=== PATIENT | female | born 1960 | race Caucasian/White ===

== ENCOUNTER 2023-07-03 23:14 | Emergency (ER) | payer OTHER, MEDICAID ==
[~2023-07-03] VITALS: Ht 162.6 cm; Wt 81.6 kg
[2023-07-03 23:20] VITALS: BP 194/76; PULSE 70; RESP 20; TEMP 98.2; O2SAT 97
[2023-07-03] MEDS ORDERED: ACETAMINOPHEN 325 MG TAB PO ONE (23:45)
[2023-07-04] MEDS ORDERED: ACETAMINOPHEN EXTRA STRENGTH 500 MG TAB PO ONE
[2023-07-04 00:04] LABS: BASOPHILS # (AUTO) 0.1 K/uL (0.00-0.22); BASOPHILS % (AUTO) 1.3 % (0.0-2.0); EOSINOPHILS # (AUTO) 0.4 K/uL (0-0.4); EOSINOPHILS % (AUTO) 3.8 % (0.0-4.0); HEMATOCRIT 29.6 % (36-48); HEMOGLOBIN 9.9 g/dL (12.0-16.0); LYMPHOCYTES # (AUTO) 1.8 K/uL (2.5-16.5); LYMPHOCYTES % (AUTO) 18.5 % (20.5-51.1); MEAN CORPUSCULAR HEMOGLOBIN 31 pg (27-31); MEAN CORPUSCULAR HGB CONC 34 g/dL (33-37); MEAN CORPUSCULAR VOLUME 93.3 fL (80-94); MONOCYTES # (AUTO) 1.1 K/uL (0.8-1.0); MONOCYTES % (AUTO) 11.4 % (1.7-9.3); NEUTROPHILS # (AUTO) 6.5 K/uL (1.8-7.7); PLATELET COUNT (AUTO) 228 K/uL (140-450); RED BLOOD CELL COUNT(AUTO) 3.17 MIL/uL (4.20-5.40); RED CELL DISTRIBUTION WIDTH 19.1 % (11.6-13.7); WHITE BLOOD COUNT (AUTO) 9.9 K/uL (4.8-10.8)
[2023-07-04 00:18] LABS: ANION GAP 12.1 (8-16); CALCIUM 9.1 mg/dL (8.5-10.1); CARBON DIOXIDE 33.8 mmol/L (21-32); POTASSIUM 4.9 mmol/L (3.5-5.1)
[2023-07-04 00:22] LABS: CREATININE 5.2 mg/dL (0.6-1.3)
[2023-07-04] MEDS ORDERED: carvediloL 6.25 MG TAB PO ONE (03:00)
[2023-07-04] MEDS ORDERED: oxyCODONE 10 MG TABER PO ONE (07:00)
[2023-07-04 07:27] VITALS: TEMP 97.6
[2023-07-04] MEDS ORDERED: hydrALAZINE 20 MG/ML VIAL IVP ONE (07:55)
[2023-07-04] MEDS ORDERED: LID5T TP ×2 (07:56→08:24)
[2023-07-04] MEDS ORDERED: LIDOCAINE 5% 1 EA PATCH TP ONE (08:05)
[2023-07-04] MEDS ORDERED: FLUTICASONE NASAL 50 MCG/ACTUATION 16 GM BTL NS SCH (09:00)
[2023-07-04 09:28] VITALS: BP 178/71; PULSE 79; RESP 17; O2SAT 97
== END 2023-07-04 09:29 | disposition home or self-care (01) ==
LOC: MED 23:14
DX: S89.92XA Unspecified injury of left lower leg, initial encounter (principal); E11.22 Type 2 diabetes mellitus with diabetic chronic kidney disease; I13.2 Hypertensive heart and chronic kidney disease with heart failure and with stage 5 chronic kidney disease, or end stage renal disease; N18.6 End stage renal disease; F32.9 Major depressive disorder, single episode, unspecified; Z86.73 Personal history of transient ischemic attack (TIA), and cerebral infarction without residual deficits; Z79.899 Other long term (current) drug therapy; Z99.2 Dependence on renal dialysis; Z88.0 Allergy status to penicillin; Z88.5 Allergy status to narcotic agent; Z88.8 Allergy status to other drugs, medicaments and biological substances; X58.XXXA Exposure to other specified factors, initial encounter; Y93.89 Activity, other specified; Y92.89 Other specified places as the place of occurrence of the external cause; Y99.8 Other external cause status
CPT/HCPCS: 36415; 73502; 73562; 73590; 80048; 85025; 85379; 93971; 96374; 99284; J0360; Q0092

== ENCOUNTER 2023-07-07 05:10 | Emergency (ER) | payer OTHER, MEDICAID ==
[~2023-07-07] VITALS: Ht 162.6 cm; Wt 81.6 kg
[~2023-07-07 05:10] MED LIST: LID5T TP
[2023-07-07 05:15] VITALS: BP 219/83; PULSE 84; RESP 14; TEMP 96.8; O2SAT 99
[2023-07-07] MEDS ORDERED: LORazepam 2 MG/ML VIAL IM ONE (05:20)
[2023-07-07] MEDS ORDERED: TRANEXAMIC ACID 1,000 MG/10 ML VIAL MC ONE (05:20)
[2023-07-07 05:47] VITALS: BP 206/66; PULSE 73; RESP 14; O2SAT 99
== END 2023-07-07 07:38 | disposition home or self-care (01) ==
LOC: MED 05:10
DX: K06.8 Other specified disorders of gingiva and edentulous alveolar ridge (principal); I13.11 Hypertensive heart and chronic kidney disease without heart failure, with stage 5 chronic kidney disease, or end stage renal disease; E11.22 Type 2 diabetes mellitus with diabetic chronic kidney disease; N18.6 End stage renal disease; Z86.73 Personal history of transient ischemic attack (TIA), and cerebral infarction without residual deficits; Z99.2 Dependence on renal dialysis; Z79.4 Long term (current) use of insulin; Z88.0 Allergy status to penicillin; Z88.5 Allergy status to narcotic agent; Z79.1 Long term (current) use of non-steroidal anti-inflammatories (NSAID); Z88.8 Allergy status to other drugs, medicaments and biological substances
CPT/HCPCS: 96372; 99283; J2060; J3490

== ENCOUNTER 2023-07-17 19:16 | Inpatient (IN) | payer OTHER, MEDICAID ==
[~2023-07-17] VITALS: Ht 165.1 cm; Wt 68.0 kg
[2023-07-17 19:24] VITALS: BP 246/93; PULSE 64; RESP 15; TEMP 98; O2SAT 97
[2023-07-17] MEDS ORDERED: CLONIDINE HYDROCHLORIDE 0.1 MG TAB PO ONE (19:40)
[2023-07-17 20:11] LABS: BASOPHILS # (AUTO) 0.2 K/uL (0.00-0.22); BASOPHILS % (AUTO) 2.3 % (0.0-2.0); EOSINOPHILS # (AUTO) 0.2 K/uL (0-0.4); EOSINOPHILS % (AUTO) 2.7 % (0.0-4.0); HEMATOCRIT 26.5 % (36-48); HEMOGLOBIN 8.9 g/dL (12.0-16.0); LYMPHOCYTES # (AUTO) 1.4 K/uL (2.5-16.5); LYMPHOCYTES % (AUTO) 16.5 % (20.5-51.1); MEAN CORPUSCULAR HEMOGLOBIN 33 pg (27-31); MEAN CORPUSCULAR HGB CONC 34 g/dL (33-37); MEAN CORPUSCULAR VOLUME 97.5 fL (80-94); MONOCYTES # (AUTO) 0.9 K/uL (0.8-1.0); MONOCYTES % (AUTO) 10.5 % (1.7-9.3); NEUTROPHILS # (AUTO) 5.7 K/uL (1.8-7.7); PLATELET COUNT (AUTO) 334 K/uL (140-450); RED BLOOD CELL COUNT(AUTO) 2.72 MIL/uL (4.20-5.40); RED CELL DISTRIBUTION WIDTH 20.2 % (11.6-13.7); WHITE BLOOD COUNT (AUTO) 8.3 K/uL (4.8-10.8)
[2023-07-17 20:24] LABS: ALBUMIN 2.8 g/dL (3.4-5.0); ANION GAP 10.3 (8-16); CALCIUM 9.5 mg/dL (8.5-10.1); CARBON DIOXIDE 34.9 mmol/L (21-32); MAGNESIUM 2.5 mg/dL (1.8-2.4); PHOSPHORUS 3.4 mg/dL (2.5-4.9); POTASSIUM 4.2 mmol/L (3.5-5.1); TOTAL BILIRUBIN 0.4 mg/dL (0.0-1.0); TOTAL PROTEIN, SERUM 8.7 g/dL (6.4-8.2)
[2023-07-17 20:26] LABS: CREATININE 4.9 mg/dL (0.6-1.3)
[2023-07-17] MEDS ORDERED: NIFEdipine 30 MG TABER PO ONE (22:05)
[2023-07-17] MEDS ORDERED: NICARDIPINE HYDROCHLORIDE 25 MG in NACL 0.9% 240 ML IV ONE (22:05)
[2023-07-17] MEDS ORDERED: NICARDIPINE HYDROCHLORIDE 2.5 MG/ML VIAL IV ONE (22:16)
[2023-07-17] MEDS ORDERED: ALBUTEROL 0.083% 2.5 MG/3 ML NEBU INH PRN (22:35)
[2023-07-17] MEDS ORDERED: DOCUSATE SODIUM 100 MG GELCAP PO PRN (22:35)
[2023-07-17] MEDS ORDERED: MAG SULF 2000 MG/WATER PREMIX 50 ML IV PRN (22:35)
[2023-07-17] MEDS ORDERED: ONDANSETRON 4 MG/2 ML VIAL IVP PRN (22:35)
[2023-07-17] MEDS ORDERED: ZOLPIDEM 10 MG TAB PO PRN (22:35)
[2023-07-17] MEDS ORDERED: POTASSIUM CHLORIDE 10 MEQ TABER PO PRN (22:35)
[2023-07-18] VITALS (22 sets, daily range): BP systolic 111–198; BP diastolic 54–107; PULSE 55–78; RESP 12–19; TEMP 96–97.8; O2SAT 97–100
[2023-07-18] MEDS ORDERED: NIFE90TE3 PO (00:20)
[2023-07-18] MEDS ORDERED: CARV12.5 PO (00:20)
[2023-07-18] MEDS ORDERED: CLON0.1T16 PO (00:20)
[2023-07-18] MEDS ORDERED: INSU100V19 SQ (00:20)
[2023-07-18] MEDS ORDERED: INSU100S45 SUBQ (00:20)
[2023-07-18] MEDS ORDERED: TRAZ-343 PO (00:20)
[2023-07-18] MEDS ORDERED: GABA300C PO (00:20)
[2023-07-18] MEDS ORDERED: ASPI-1749 PO (00:20)
[2023-07-18] MEDS: INSULIN LISPRO SLIDING SCALE 100 UNITS/ML VIAL SUBQ PRN (01:42)
[2023-07-18] MEDS ORDERED: NICARDIPINE HYDROCHLORIDE 25 MG in NACL 0.9% 240 ML IV PRN (02:05)
[2023-07-18] MEDS: BLOOD GLUCOSE MONITORING 1 DEV DEV FS SCH ×5 (04:00→20:23)
[2023-07-18 06:26] LABS: BASOPHILS # (AUTO) 0.2 K/uL (0.00-0.22); BASOPHILS % (AUTO) 1.9 % (0.0-2.0); EOSINOPHILS # (AUTO) 0.1 K/uL (0-0.4); EOSINOPHILS % (AUTO) 1.7 % (0.0-4.0); HEMATOCRIT 27.5 % (36-48); HEMOGLOBIN 9.2 g/dL (12.0-16.0); LYMPHOCYTES # (AUTO) 1.7 K/uL (2.5-16.5); LYMPHOCYTES % (AUTO) 19.6 % (20.5-51.1); MEAN CORPUSCULAR HEMOGLOBIN 33 pg (27-31); MEAN CORPUSCULAR HGB CONC 33 g/dL (33-37); MEAN CORPUSCULAR VOLUME 97.8 fL (80-94); MONOCYTES # (AUTO) 0.7 K/uL (0.8-1.0); MONOCYTES % (AUTO) 8.6 % (1.7-9.3); NEUTROPHILS # (AUTO) 5.8 K/uL (1.8-7.7); NEUTROPHILS % (AUTO) 68.2 % (42.2-75.2); PLATELET COUNT (AUTO) 331 K/uL (140-450); RED BLOOD CELL COUNT(AUTO) 2.81 MIL/uL (4.20-5.40); WHITE BLOOD COUNT (AUTO) 8.6 K/uL (4.8-10.8)
[2023-07-18 06:52] LABS: ANION GAP 10.3 (8-16); CALCIUM 9.5 mg/dL (8.5-10.1); POTASSIUM 4.3 mmol/L (3.5-5.1)
[2023-07-18 06:53] LABS: CREATININE 5.4 mg/dL (0.6-1.3)
[2023-07-18] MEDS ORDERED: NIFEdipine 90 MG TABER PO SCH (09:00)
[2023-07-18] MEDS: GABAPENTIN 300 MG CAP PO SCH (09:00)
[2023-07-18] MEDS: ASPIRIN 81 MG TAB.CHEW PO SCH (09:00)
[2023-07-18] MEDS: PANTOPRAZOLE 40 MG INJ VIAL IVP SCH (09:44)
[2023-07-18] MEDS: LORazepam 2 MG/ML VIAL IVP PRN (11:15)
[2023-07-18] MEDS ORDERED: hydrALAZINE 10 MG TAB PO ONE (17:30)
[2023-07-18] MEDS ORDERED: hydrALAZINE 10 MG TAB ONE (18:00)
[2023-07-18] MEDS: INSULIN LANTUS 100 UNITS/ML 10 ML VIAL SUBQ SCH (20:28)
[2023-07-18] MEDS: NIFEdipine 60 MG TABER PO SCH (20:29)
[2023-07-18] MEDS: traZODone 50 MG TAB PO SCH (20:30)
[2023-07-19] VITALS (8 sets, daily range): BP systolic 132–172; BP diastolic 60–75; PULSE 56–80; RESP 18–19; TEMP 96.8–98.5; O2SAT 96–100
[2023-07-19] MEDS: LORazepam 2 MG/ML VIAL IVP PRN ×2 (01:23→11:26)
[2023-07-19 05:39] LABS: BASOPHILS # (AUTO) 0.2 K/uL (0.00-0.22); BASOPHILS % (AUTO) 2.4 % (0.0-2.0); EOSINOPHILS # (AUTO) 0.3 K/uL (0-0.4); EOSINOPHILS % (AUTO) 3.1 % (0.0-4.0); HEMATOCRIT 30.8 % (36-48); HEMOGLOBIN 10.2 g/dL (12.0-16.0); LYMPHOCYTES # (AUTO) 1.5 K/uL (2.5-16.5); LYMPHOCYTES % (AUTO) 16.9 % (20.5-51.1); MEAN CORPUSCULAR HEMOGLOBIN 32 pg (27-31); MEAN CORPUSCULAR HGB CONC 33 g/dL (33-37); MEAN CORPUSCULAR VOLUME 97.5 fL (80-94); MONOCYTES # (AUTO) 0.8 K/uL (0.8-1.0); MONOCYTES % (AUTO) 8.8 % (1.7-9.3); NEUTROPHILS # (AUTO) 6.2 K/uL (1.8-7.7); NEUTROPHILS % (AUTO) 68.8 % (42.2-75.2); PLATELET COUNT (AUTO) 330 K/uL (140-450); RED BLOOD CELL COUNT(AUTO) 3.16 MIL/uL (4.20-5.40); RED CELL DISTRIBUTION WIDTH 20.3 % (11.6-13.7)
[2023-07-19 05:56] LABS: ANION GAP 9.2 (8-16); CALCIUM 9.3 mg/dL (8.5-10.1); CARBON DIOXIDE 33.1 mmol/L (21-32); POTASSIUM 4.3 mmol/L (3.5-5.1)
[2023-07-19 06:20] LABS: CREATININE 4.2 mg/dL (0.6-1.3)
[2023-07-19] MEDS: BLOOD GLUCOSE MONITORING 1 DEV DEV FS SCH ×4 (06:54→21:06)
[2023-07-19] MEDS ORDERED: carvediloL 12.5 MG TAB PO SCH (08:15)
[2023-07-19] MEDS ORDERED: CLONIDINE HYDROCHLORIDE 0.1 MG TAB PO SCH (08:15)
[2023-07-19] MEDS: NIFEdipine 60 MG TABER PO SCH ×2 (08:59→20:36)
[2023-07-19] MEDS: GABAPENTIN 300 MG CAP PO SCH (08:59)
[2023-07-19] MEDS: ASPIRIN 81 MG TAB.CHEW PO SCH (08:59)
[2023-07-19] MEDS: PANTOPRAZOLE 40 MG INJ VIAL IVP SCH (09:00)
[2023-07-19] MEDS: CLONIDINE HYDROCHLORIDE 0.1 MG TAB PO SCH (20:38)
[2023-07-19] MEDS: carvediloL 12.5 MG TAB PO SCH (20:38)
[2023-07-19] MEDS: traZODone 50 MG TAB PO SCH (20:39)
[2023-07-19] MEDS: ACETAMINOPHEN 325 MG TAB PO PRN (20:40)
[2023-07-19] MEDS: INSULIN LANTUS 100 UNITS/ML 10 ML VIAL SUBQ SCH (21:06)
[2023-07-20] VITALS (13 sets, daily range): BP systolic 109–140; BP diastolic 49–77; PULSE 62–82; RESP 18; TEMP 96.7–98; O2SAT 96–100
[2023-07-20 05:18] LABS: BASOPHILS # (AUTO) 0.2 K/uL (0.00-0.22); EOSINOPHILS # (AUTO) 0.2 K/uL (0-0.4); EOSINOPHILS % (AUTO) 3.7 % (0.0-4.0); HEMATOCRIT 28.9 % (36-48); HEMOGLOBIN 9.5 g/dL (12.0-16.0); LYMPHOCYTES # (AUTO) 1.8 K/uL (2.5-16.5); LYMPHOCYTES % (AUTO) 27.8 % (20.5-51.1); MEAN CORPUSCULAR HEMOGLOBIN 32 pg (27-31); MEAN CORPUSCULAR HGB CONC 33 g/dL (33-37); MEAN CORPUSCULAR VOLUME 97.7 fL (80-94); MONOCYTES # (AUTO) 0.9 K/uL (0.8-1.0); MONOCYTES % (AUTO) 14.4 % (1.7-9.3); NEUTROPHILS # (AUTO) 3.2 K/uL (1.8-7.7); NEUTROPHILS % (AUTO) 51.1 % (42.2-75.2); PLATELET COUNT (AUTO) 316 K/uL (140-450); RED BLOOD CELL COUNT(AUTO) 2.95 MIL/uL (4.20-5.40); RED CELL DISTRIBUTION WIDTH 20.5 % (11.6-13.7); WHITE BLOOD COUNT (AUTO) 6.3 K/uL (4.8-10.8)
[2023-07-20 05:38] LABS: ANION GAP 10.2 (8-16); CALCIUM 9.2 mg/dL (8.5-10.1); CARBON DIOXIDE 32.4 mmol/L (21-32); POTASSIUM 4.6 mmol/L (3.5-5.1)
[2023-07-20] MEDS: BLOOD GLUCOSE MONITORING 1 DEV DEV FS SCH ×3 (06:16→16:15)
[2023-07-20] MEDS: PANTOPRAZOLE 40 MG INJ VIAL IVP SCH (08:11)
[2023-07-20] MEDS: GABAPENTIN 300 MG CAP PO SCH (08:12)
[2023-07-20] MEDS: carvediloL 12.5 MG TAB PO SCH (08:12)
[2023-07-20] MEDS: ACETAMINOPHEN 325 MG TAB PO PRN (08:13)
[2023-07-20] MEDS: ASPIRIN 81 MG TAB.CHEW PO SCH (08:13)
[2023-07-20] MEDS: NIFEdipine 60 MG TABER PO SCH (08:14)
[2023-07-20] MEDS: CLONIDINE HYDROCHLORIDE 0.1 MG TAB PO SCH (08:14)
[2023-07-20] MEDS ORDERED: MAG SULF 2000 MG/WATER PREMIX 50 ML IV ONE (09:05)
[2023-07-20] MEDS ORDERED: FOAM DRESSING TP PRN (10:35)
[2023-07-20] MEDS ORDERED: NIFE60TA22 PO (11:03)
[2023-07-20] MEDS ORDERED: CARV12.5 PO (11:04)
[2023-07-20] MEDS ORDERED: CLON0.1T16 PO (11:08)
[2023-07-20] MEDS: INSULIN LISPRO SLIDING SCALE 100 UNITS/ML VIAL SUBQ PRN (11:28)
[2023-07-20] MEDS ORDERED: FOAM DRESSING TP SCH (13:00)
[2023-07-20] MEDS ORDERED: EPOETIN ALFA 10,000 UNITS/ML VIAL SUBQ SCH (13:15)
[2023-07-21 06:08] LABS: HEPATITIS A ANTIBODY IGM Negative (Negative); HEPATITIS A ANTIBODY TOTAL Negative (Negative); HEPATITIS B CORE AB TOTAL Negative (Negative); HEPATITIS B CORE, IGM Negative (Negative); HEPATITIS B SURFACE ANTIBODY Non Reactive (.); HEPATITIS B SURFACE ANTIGEN Negative (Negative); HEPATITIS C VIRUS ANTIBODY Non Reactive (Non Reactive)
== END 2023-07-20 18:15 | DRG 640 ==
LOC: MED 19:16 → MMU 22:31 → MIC 23:04 → MTU 07-18 15:50
PROVIDERS: ADMIT Family Medicine; ATTEND Family Medicine
PROC: 5A1D70Z Performance of Urinary Filtration, Intermittent, Less than 6 Hours Per Day (ICD-10-PCS; principal; 2023-07-18)
DX: E43 Unspecified severe protein-calorie malnutrition (principal); N17.0 Acute kidney failure with tubular necrosis; N18.6 End stage renal disease; I16.1 Hypertensive emergency; G93.49 Other encephalopathy; I69.354 Hemiplegia and hemiparesis following cerebral infarction affecting left non-dominant side; I12.0 Hypertensive chronic kidney disease with stage 5 chronic kidney disease or end stage renal disease; D50.9 Iron deficiency anemia, unspecified; D53.9 Nutritional anemia, unspecified; E83.41 Hypermagnesemia; E11.22 Type 2 diabetes mellitus with diabetic chronic kidney disease; Z88.5 Allergy status to narcotic agent; Z88.0 Allergy status to penicillin; Z88.8 Allergy status to other drugs, medicaments and biological substances; Z79.899 Other long term (current) drug therapy; Z79.82 Long term (current) use of aspirin; Z68.25 Body mass index [BMI] 25.0-25.9, adult
CPT/HCPCS: 36415; 70450; 80048; 80053; 82948; 83735; 84100; 84484; 85025; 86704; 86706; 86708; 86709; 86803; 87081; 87340; 93005; 96374; 97116; 97163-GP; 99285; C9113; J0885; J1815; J2060; J2405; J7030

== ENCOUNTER 2023-07-23 15:06 | Emergency (ER) | payer OTHER, MEDICAID ==
[~2023-07-23] VITALS: Ht 160 cm; Wt 74.8 kg
[2023-07-23 15:06] VITALS: BP 108/69; PULSE 69; RESP 17; TEMP 97.4; O2SAT 97
[~2023-07-23 15:06] MED LIST changes: +ASPI-1749 PO; +CARV12.5 PO; +CLON0.1T16 PO; +GABA300C PO; +INSU100S45 SUBQ; +INSU100V19 SQ; +NIFE60TA22 PO; +NIFE90TE3 PO; +TRAZ-343 PO
[2023-07-23 16:08] VITALS: O2SAT 100
[2023-07-23 16:46] VITALS: BP 108/69; PULSE 69; RESP 17; TEMP 97.4; O2SAT 97
== END 2023-07-23 16:50 | disposition home or self-care (01) ==
LOC: MED 15:06
DX: S09.90XA Unspecified injury of head, initial encounter (principal); E11.22 Type 2 diabetes mellitus with diabetic chronic kidney disease; I13.2 Hypertensive heart and chronic kidney disease with heart failure and with stage 5 chronic kidney disease, or end stage renal disease; N18.6 End stage renal disease; Z99.2 Dependence on renal dialysis; Z88.0 Allergy status to penicillin; Z88.5 Allergy status to narcotic agent; Z88.8 Allergy status to other drugs, medicaments and biological substances; Z79.899 Other long term (current) drug therapy; Z86.73 Personal history of transient ischemic attack (TIA), and cerebral infarction without residual deficits; W19.XXXA Unspecified fall, initial encounter; Y93.89 Activity, other specified; Y92.89 Other specified places as the place of occurrence of the external cause; Y99.8 Other external cause status
CPT/HCPCS: 70450; 73562; 99284

== ENCOUNTER 2023-08-07 01:06 | Inpatient (IN) | payer OTHER, MEDICAID ==
[~2023-08-07] VITALS: Ht 170.2 cm; Wt 81.6 kg
[2023-08-07 01:08] VITALS: BP 127/97; PULSE 98; RESP 16; TEMP 97.9; O2SAT 96
[2023-08-07] MEDS ORDERED: NACL 0.9% 1,000 ML IV SCH (01:15)
[2023-08-07] MEDS ORDERED: ONDANSETRON 4 MG/2 ML VIAL ONE (01:18)
[2023-08-07] MEDS ORDERED: fentaNYL citrate 0.05 MG/ML VIAL IVP ONE (01:30)
[2023-08-07 01:33] LABS: BASOPHILS % (AUTO) 0.1 % (0.0-2.0); EOSINOPHILS # (AUTO) 0.3 K/uL (0-0.4); HEMATOCRIT 32.5 % (36-48); HEMOGLOBIN 10.3 g/dL (12.0-16.0); LYMPHOCYTES # (AUTO) 0.3 K/uL (2.5-16.5); LYMPHOCYTES % (AUTO) 2.3 % (20.5-51.1); MEAN CORPUSCULAR HEMOGLOBIN 32 pg (27-31); MEAN CORPUSCULAR HGB CONC 32 g/dL (33-37); MEAN CORPUSCULAR VOLUME 100.5 fL (80-94); MONOCYTES # (AUTO) 0.4 K/uL (0.8-1.0); MONOCYTES % (AUTO) 3.2 % (1.7-9.3); NEUTROPHILS # (AUTO) 11.7 K/uL (1.8-7.7); NEUTROPHILS % (AUTO) 92.4 % (42.2-75.2); PLATELET COUNT (AUTO) 272 K/uL (140-450); RED BLOOD CELL COUNT(AUTO) 3.24 MIL/uL (4.20-5.40); RED CELL DISTRIBUTION WIDTH 17.7 % (11.6-13.7); WHITE BLOOD COUNT (AUTO) 12.6 K/uL (4.8-10.8)
[2023-08-07] MEDS ORDERED: ONDANSETRON 4 MG/2 ML VIAL IVP ONE (01:35)
[2023-08-07 01:38] LABS: INR 0.99 (0.8-1.2); PARTIAL THROMBOPLASTIN TIME 25.7 secs (22-35.6); PROTHROMBIN TIME 10.4 secs (10.8-13.4)
[2023-08-07 01:41] LABS: ALBUMIN 2.9 g/dL (3.4-5.0); ANION GAP 15.2 (8-16); CALCIUM 9.4 mg/dL (8.5-10.1); CARBON DIOXIDE 31.1 mmol/L (21-32); CREATININE 3.7 mg/dL (0.6-1.3); POTASSIUM 4.3 mmol/L (3.5-5.1); TOTAL BILIRUBIN 1.1 mg/dL (0.0-1.0); TOTAL PROTEIN, SERUM 8.4 g/dL (6.4-8.2)
[2023-08-07 01:45] LABS: LACTIC ACID 2.9 mmol/L (0.4-2.0)
[2023-08-07] MEDS ORDERED: CEFEPIME 1,000 MG in DEXTROSE 5% 50 ML IV ONE (02:15)
[2023-08-07] MEDS ORDERED: VANCOMYCIN 1,000 MG in DEXTROSE 5% 250 ML IV ONE (02:15)
[2023-08-07] MEDS ORDERED: CEFEPIME 1,000 MG VIAL ONE (02:51)
[2023-08-07] MEDS ORDERED: VANCOMYCIN 1,000 MG VIAL ONE (02:53)
[2023-08-07 04:55] LABS: APPEARANCE,URINE CLEAR (CLEAR); BILIRUBIN,URINE NEGATIVE (NEGATIVE); BLOOD, URINE 2+ (NEGATIVE); COLOR,URINE YELLOW (YELLOW); LEUKOCYTE ESTERASE ,URINE 2+ (NEGATIVE); NITRITE, URINE NEGATIVE (NEGATIVE); PH,URINE 7.5 (5.0-9.0); PROTEIN,URINE 2+ (NEGATIVE); UGLUCOSE NEGATIVE (NEGATIVE); UROBILINOGEN,URINE 0.2 EU/dL (0.2 - 1)
[2023-08-07 04:57] LABS: BACTERIA,URINE 10-30 (MOD) /HPF (None Seen); MUCUS,URINE 1+ /LPF (None Seen); RBC,URINE 11-20 (MOD) /HPF (0-5); SQUAMOUS EPITHELIAL CELL,UR 0-3 (FEW) /LPF (0-3 (FEW)); WBC,URINE TOO MANY TO COUNT /HPF (0-5)
[2023-08-07] MEDS ORDERED: ACETAMINOPHEN 325 MG TAB PO PRN (12:25)
[2023-08-07] MEDS ORDERED: MAG SULF 2000 MG/WATER PREMIX 50 ML IV PRN (12:25)
[2023-08-07] MEDS ORDERED: DEXTROSE 50% 50 ML SYR IVP PRN (12:25)
[2023-08-07] MEDS: NACL 0.9% 1,000 ML IV SCH (12:25)
[2023-08-07] MEDS ORDERED: ONDANSETRON 4 MG/2 ML VIAL IVP PRN (12:25)
[2023-08-07] MEDS ORDERED: POTASSIUM CHLORIDE 10 MEQ TABER PO PRN (12:25)
[2023-08-07 13:30] LABS: LACTIC ACID 1.9 mmol/L (0.4-2.0)
[2023-08-07] MEDS ORDERED: PIPERACILLIN/TAZOBACTAM 2.25 GM VIAL IV ONE ×2 (13:46→23:43)
[2023-08-07 13:57] LABS: INR 1.08 (0.8-1.2); PARTIAL THROMBOPLASTIN TIME 33.2 secs (22-35.6); PROTHROMBIN TIME 11.3 secs (10.8-13.4)
[2023-08-07] MEDS: PIPERACILLIN/TAZOBACTAM 2.25 GM in DEXTROSE 5% 50 ML IV SCH ×2 (14:05→23:48)
[2023-08-07 14:30] LABS: CHOL/HDL RATIO 4.3 (1-4.5); FREE T4 (FREE THYROXINE) 1.31 ng/dL (0.76-1.46); MAGNESIUM 1.8 mg/dL (1.8-2.4); PHOSPHORUS 3.1 mg/dL (2.5-4.9); THYROID STIMULATING HORMONE 0.72 uIU/mL (0.34-3.74)
[2023-08-07] MEDS: BLOOD GLUCOSE MONITORING 1 DEV DEV FS SCH ×2 (16:30→23:00)
[2023-08-07] MEDS ORDERED: NON-FORMULARY ITEM (Insulin Aspart* (Novolog*) 3 UNITS) SUBQ SCH (16:30)
[2023-08-07] MEDS: INSULIN LISPRO SLIDING SCALE 100 UNITS/ML VIAL SUBQ PRN (19:14)
[2023-08-07 20:26] VITALS: BP 137/52; PULSE 71; PULSE 80; RESP 17; TEMP 97.6; O2SAT 94; O2SAT 99
[2023-08-07] MEDS ORDERED: NIFEDIPINE PO SCH (21:00)
[2023-08-07] MEDS: ACETAMINOPHEN EXTRA STRENGTH 500 MG TAB PO PRN (22:38)
[2023-08-07] MEDS: CLONIDINE HYDROCHLORIDE 0.1 MG TAB PO SCH (23:50)
[2023-08-07] MEDS: DOCUSATE SODIUM 100 MG GELCAP PO SCH (23:52)
[2023-08-07] MEDS: carvediloL 12.5 MG TAB PO SCH (23:53)
[2023-08-07] MEDS: traZODone 50 MG TAB PO SCH (23:54)
[2023-08-08] VITALS (7 sets, daily range): BP systolic 154–208; BP diastolic 63–87; PULSE 63–78; RESP 16–18; TEMP 97.2–98.9; O2SAT 96–99
[2023-08-08] MEDS ORDERED: PIPERACILLIN/TAZOBACTAM 2.25 GM VIAL IV ONE (05:04)
[2023-08-08] MEDS: PIPERACILLIN/TAZOBACTAM 2.25 GM in DEXTROSE 5% 50 ML IV SCH ×3 (05:24→20:59)
[2023-08-08 06:14] LABS: BASOPHILS # (AUTO) 0.1 K/uL (0.00-0.22); BASOPHILS % (AUTO) 1.3 % (0.0-2.0); EOSINOPHILS # (AUTO) 0.4 K/uL (0-0.4); EOSINOPHILS % (AUTO) 4.9 % (0.0-4.0); HEMATOCRIT 24.9 % (36-48); HEMOGLOBIN 8.2 g/dL (12.0-16.0); LYMPHOCYTES # (AUTO) 1.3 K/uL (2.5-16.5); LYMPHOCYTES % (AUTO) 15.2 % (20.5-51.1); MEAN CORPUSCULAR HEMOGLOBIN 33 pg (27-31); MEAN CORPUSCULAR HGB CONC 33 g/dL (33-37); MEAN CORPUSCULAR VOLUME 99.8 fL (80-94); MONOCYTES # (AUTO) 0.8 K/uL (0.8-1.0); NEUTROPHILS % (AUTO) 69.6 % (42.2-75.2); PLATELET COUNT (AUTO) 240 K/uL (140-450); RED BLOOD CELL COUNT(AUTO) 2.49 MIL/uL (4.20-5.40); RED CELL DISTRIBUTION WIDTH 17.6 % (11.6-13.7); WHITE BLOOD COUNT (AUTO) 8.6 K/uL (4.8-10.8)
[2023-08-08 06:44] LABS: CALCIUM 8.5 mg/dL (8.5-10.1); CARBON DIOXIDE 31.8 mmol/L (21-32); POTASSIUM 4.8 mmol/L (3.5-5.1)
[2023-08-08 06:50] LABS: MAGNESIUM 1.9 mg/dL (1.8-2.4); PHOSPHORUS 4.1 mg/dL (2.5-4.9)
[2023-08-08 06:53] LABS: CREATININE 5.2 mg/dL (0.6-1.3)
[2023-08-08] MEDS: BLOOD GLUCOSE MONITORING 1 DEV DEV FS SCH ×4 (07:57→20:57)
[2023-08-08] MEDS: NACL 0.9% 1,000 ML IV SCH (08:25)
[2023-08-08] MEDS: carvediloL 12.5 MG TAB PO SCH ×3 (09:00→21:00)
[2023-08-08] MEDS: NIFEdipine 90 MG TABER PO SCH ×2 (09:00→09:57)
[2023-08-08] MEDS: CLONIDINE HYDROCHLORIDE 0.1 MG TAB PO SCH ×3 (09:00→20:59)
[2023-08-08] MEDS: PANTOPRAZOLE 40 MG INJ VIAL IVP SCH (09:00)
[2023-08-08] MEDS: DOCUSATE SODIUM 100 MG GELCAP PO SCH ×2 (09:55→21:00)
[2023-08-08] MEDS: ASPIRIN 81 MG TAB.CHEW PO SCH (09:56)
[2023-08-08] MEDS: GABAPENTIN 300 MG CAP PO SCH (09:56)
[2023-08-08] MEDS: ACETAMINOPHEN EXTRA STRENGTH 500 MG TAB PO PRN ×2 (10:08→16:24)
[2023-08-08] MEDS ORDERED: hydrALAZINE 10 MG TAB PO SCH (19:55)
[2023-08-08] MEDS: INSULIN LANTUS 100 UNITS/ML 10 ML VIAL SUBQ SCH ×2 (20:00)
[2023-08-08] MEDS: traZODone 50 MG TAB PO SCH (21:00)
[2023-08-09] VITALS (7 sets, daily range): BP systolic 133–159; BP diastolic 50–80; PULSE 58–70; RESP 15–20; TEMP 97.2–98.7; O2SAT 96–99
[2023-08-09] MEDS: ACETAMINOPHEN EXTRA STRENGTH 500 MG TAB PO PRN ×2 (00:31→23:51)
[2023-08-09] MEDS ORDERED: KETOROLAC 30 MG/ML VIAL IVP ONE (02:25)
[2023-08-09] MEDS: hydrALAZINE 10 MG TAB PO PRN ×2 (02:50→08:20)
[2023-08-09] MEDS: NACL 0.9% 1,000 ML IV SCH (05:03)
[2023-08-09] MEDS: PIPERACILLIN/TAZOBACTAM 2.25 GM in DEXTROSE 5% 50 ML IV SCH ×3 (05:04→20:36)
[2023-08-09 06:22] LABS: BASOPHILS # (AUTO) 0.2 K/uL (0.00-0.22); BASOPHILS % (AUTO) 1.7 % (0.0-2.0); EOSINOPHILS # (AUTO) 0.4 K/uL (0-0.4); EOSINOPHILS % (AUTO) 4.1 % (0.0-4.0); HEMATOCRIT 26.5 % (36-48); HEMOGLOBIN 8.8 g/dL (12.0-16.0); LYMPHOCYTES # (AUTO) 1.2 K/uL (2.5-16.5); LYMPHOCYTES % (AUTO) 13.5 % (20.5-51.1); MEAN CORPUSCULAR HEMOGLOBIN 33 pg (27-31); MEAN CORPUSCULAR HGB CONC 33 g/dL (33-37); MEAN CORPUSCULAR VOLUME 99.5 fL (80-94); MONOCYTES # (AUTO) 0.7 K/uL (0.8-1.0); MONOCYTES % (AUTO) 8.3 % (1.7-9.3); NEUTROPHILS # (AUTO) 6.5 K/uL (1.8-7.7); NEUTROPHILS % (AUTO) 72.4 % (42.2-75.2); PLATELET COUNT (AUTO) 269 K/uL (140-450); RED BLOOD CELL COUNT(AUTO) 2.66 MIL/uL (4.20-5.40); RED CELL DISTRIBUTION WIDTH 17.8 % (11.6-13.7)
[2023-08-09 06:34] LABS: MAGNESIUM 1.9 mg/dL (1.8-2.4); PHOSPHORUS 3.3 mg/dL (2.5-4.9)
[2023-08-09] MEDS: BLOOD GLUCOSE MONITORING 1 DEV DEV FS SCH ×4 (06:36→20:50)
[2023-08-09 06:37] LABS: ANION GAP 10.9 (8-16); CALCIUM 9.2 mg/dL (8.5-10.1); CARBON DIOXIDE 31.3 mmol/L (21-32); CREATININE 3.4 mg/dL (0.6-1.3); POTASSIUM 4.2 mmol/L (3.5-5.1)
[2023-08-09] MEDS ORDERED: GABAPENTIN 100 MG CAP PO SCH (09:00)
[2023-08-09] MEDS: GABAPENTIN 300 MG CAP PO SCH (09:29)
[2023-08-09] MEDS: CLONIDINE HYDROCHLORIDE 0.1 MG TAB PO SCH ×2 (09:30→20:37)
[2023-08-09] MEDS: carvediloL 12.5 MG TAB PO SCH ×2 (09:31→20:38)
[2023-08-09] MEDS: ASPIRIN 81 MG TAB.CHEW PO SCH (09:31)
[2023-08-09] MEDS: NIFEdipine 90 MG TABER PO SCH (09:31)
[2023-08-09] MEDS: PANTOPRAZOLE 40 MG INJ VIAL IVP SCH (09:31)
[2023-08-09] MEDS: DOCUSATE SODIUM 100 MG GELCAP PO SCH ×2 (09:31→20:38)
[2023-08-09] MEDS ORDERED: hydrALAZINE 25 MG TAB PO PRN (12:45)
[2023-08-09] MEDS: INSULIN LISPRO SLIDING SCALE 100 UNITS/ML VIAL SUBQ PRN (18:11)
[2023-08-09] MEDS: INSULIN LANTUS 100 UNITS/ML 10 ML VIAL SUBQ SCH (20:00)
[2023-08-09] MEDS: traZODone 50 MG TAB PO SCH (20:39)
[2023-08-09 22:08] LABS: AMPHETAMINE, URINE NEGATIVE ng/ml (NEG <=1000); BARBITURATE, URINE NEGATIVE ng/ml (NEG <=200); BENZODIAZEPINE, URINE NEGATIVE ng/mL (NEG <=200); CANNABINOID, URINE NEGATIVE ng/mL (NEG <=50); COCAINE, URINE NEGATIVE ng/mL (NEG <=300); OPIATE, URINE NEGATIVE ng/mL (NEG <=2000); PHENCYCLIDINE SCREEN,URINE NEGATIVE ng/mL (NEG <=25)
[2023-08-10] VITALS (7 sets, daily range): BP systolic 126–176; BP diastolic 55–98; PULSE 56–85; RESP 18–20; TEMP 96.9–97.9; O2SAT 96–99
[2023-08-10] MEDS: NACL 0.9% 1,000 ML IV SCH (00:23)
[2023-08-10] MEDS: PIPERACILLIN/TAZOBACTAM 2.25 GM in DEXTROSE 5% 50 ML IV SCH ×2 (05:33→13:57)
[2023-08-10 06:50] LABS: MAGNESIUM 2.2 mg/dL (1.8-2.4); PHOSPHORUS 5.3 mg/dL (2.5-4.9)
[2023-08-10 06:54] LABS: ANION GAP 14.4 (8-16); CALCIUM 9.2 mg/dL (8.5-10.1); CARBON DIOXIDE 27.3 mmol/L (21-32); POTASSIUM 4.7 mmol/L (3.5-5.1)
[2023-08-10 06:56] LABS: BASOPHILS # (AUTO) 0.2 K/uL (0.00-0.22); BASOPHILS % (AUTO) 2.5 % (0.0-2.0); EOSINOPHILS # (AUTO) 0.3 K/uL (0-0.4); EOSINOPHILS % (AUTO) 5.6 % (0.0-4.0); HEMATOCRIT 26.2 % (36-48); HEMOGLOBIN 8.7 g/dL (12.0-16.0); LYMPHOCYTES # (AUTO) 1.7 K/uL (2.5-16.5); LYMPHOCYTES % (AUTO) 27.1 % (20.5-51.1); MEAN CORPUSCULAR HEMOGLOBIN 33 pg (27-31); MEAN CORPUSCULAR HGB CONC 33 g/dL (33-37); MEAN CORPUSCULAR VOLUME 99.7 fL (80-94); MONOCYTES # (AUTO) 0.7 K/uL (0.8-1.0); MONOCYTES % (AUTO) 11.1 % (1.7-9.3); NEUTROPHILS # (AUTO) 3.3 K/uL (1.8-7.7); NEUTROPHILS % (AUTO) 53.7 % (42.2-75.2); PLATELET COUNT (AUTO) 276 K/uL (140-450); RED BLOOD CELL COUNT(AUTO) 2.63 MIL/uL (4.20-5.40); RED CELL DISTRIBUTION WIDTH 17.7 % (11.6-13.7); WHITE BLOOD COUNT (AUTO) 6.2 K/uL (4.8-10.8)
[2023-08-10] MEDS: BLOOD GLUCOSE MONITORING 1 DEV DEV FS SCH ×3 (06:58→16:42)
[2023-08-10 07:00] LABS: CREATININE 5.1 mg/dL (0.6-1.3)
[2023-08-10] MEDS: INSULIN LISPRO SLIDING SCALE 100 UNITS/ML VIAL SUBQ PRN ×2 (07:01→11:54)
[2023-08-10] MEDS ORDERED: CEPH250C16 PO (07:28)
[2023-08-10] MEDS ORDERED: PIPE50SO5 IV (08:26)
[2023-08-10] MEDS: DOCUSATE SODIUM 100 MG GELCAP PO SCH (09:00)
[2023-08-10] MEDS: ASPIRIN 81 MG TAB.CHEW PO SCH (09:26)
[2023-08-10] MEDS: carvediloL 12.5 MG TAB PO SCH (09:27)
[2023-08-10] MEDS: GABAPENTIN 300 MG CAP PO SCH (09:27)
[2023-08-10] MEDS: NIFEdipine 90 MG TABER PO SCH (09:28)
[2023-08-10] MEDS: CLONIDINE HYDROCHLORIDE 0.1 MG TAB PO SCH (09:29)
[2023-08-10] MEDS: PANTOPRAZOLE 40 MG INJ VIAL IVP SCH (09:55)
== END 2023-08-10 18:00 | DRG 871 ==
LOC: MED 01:06 → MTU 12:26
PROC: 5A1D70Z Performance of Urinary Filtration, Intermittent, Less than 6 Hours Per Day (ICD-10-PCS; principal; 2023-08-08)
PROC: 5A1D70Z Performance of Urinary Filtration, Intermittent, Less than 6 Hours Per Day (ICD-10-PCS; 2023-08-09)
PROC: 5A1D70Z Performance of Urinary Filtration, Intermittent, Less than 6 Hours Per Day (ICD-10-PCS; 2023-08-10)
DX: A41.9 Sepsis, unspecified organism (principal); J69.0 Pneumonitis due to inhalation of food and vomit; J96.01 Acute respiratory failure with hypoxia; N18.6 End stage renal disease; I12.0 Hypertensive chronic kidney disease with stage 5 chronic kidney disease or end stage renal disease; C16.9 Malignant neoplasm of stomach, unspecified; I69.354 Hemiplegia and hemiparesis following cerebral infarction affecting left non-dominant side; E87.70 Fluid overload, unspecified; E11.22 Type 2 diabetes mellitus with diabetic chronic kidney disease; Z88.1 Allergy status to other antibiotic agents; Z88.5 Allergy status to narcotic agent; Z88.0 Allergy status to penicillin; Z88.8 Allergy status to other drugs, medicaments and biological substances; Z79.4 Long term (current) use of insulin; Z79.899 Other long term (current) drug therapy; Z85.00 Personal history of malignant neoplasm of unspecified digestive organ
CPT/HCPCS: 36415; 70450; 71045; 80048; 80053; 80305; 81001; 82140; 82150; 82948; 83036; 83605; 83690; 83735; 83880; 84100; 84439; 84443; 84484; 85025; 85610; 85730; 87040; 87070; 87081; 87086; 87205; 93005; 96361; 96365; 96368; 96375; 99291; C9113; J0692; J1644; J1815; J1885; J2405; J2543; J3010; J3370; J7060; Q0092; Q9967

== ENCOUNTER 2023-08-18 07:52 | Inpatient (IN) | payer OTHER, MEDICAID ==
[~2023-08-18] VITALS: Ht 162.6 cm; Wt 83.5 kg
[2023-08-18] VITALS (7 sets, daily range): BP systolic 150–215; BP diastolic 71–89; PULSE 52–86; RESP 16–20; TEMP 97.3–98.1; O2SAT 94–99
[~2023-08-18 07:52] MED LIST changes: +CEPH250C16 PO; -NIFE90TE3 PO; +PIPE50SO5 IV
[2023-08-18 08:49] LABS: BLOOD GAS BASE EXCESS 4.8 mmol/L (-2.0-2.0); BLOOD GAS HCO3 29.1 mmol/L (22-26); BLOOD GAS PH 7.459 (7.35-7.45); BLOOD GAS PO2 57.5 mmHg (75-100)
[2023-08-18 08:57] LABS: BASOPHILS # (AUTO) 0.2 K/uL (0.00-0.22); BASOPHILS % (AUTO) 2.3 % (0.0-2.0); EOSINOPHILS # (AUTO) 0.3 K/uL (0-0.4); EOSINOPHILS % (AUTO) 3.2 % (0.0-4.0); HEMATOCRIT 28.6 % (36-48); HEMOGLOBIN 9.3 g/dL (12.0-16.0); LYMPHOCYTES # (AUTO) 1.2 K/uL (2.5-16.5); LYMPHOCYTES % (AUTO) 14.3 % (20.5-51.1); MEAN CORPUSCULAR HEMOGLOBIN 33 pg (27-31); MEAN CORPUSCULAR HGB CONC 32 g/dL (33-37); MEAN CORPUSCULAR VOLUME 101.2 fL (80-94); MONOCYTES # (AUTO) 0.6 K/uL (0.8-1.0); MONOCYTES % (AUTO) 6.9 % (1.7-9.3); NEUTROPHILS # (AUTO) 6.4 K/uL (1.8-7.7); NEUTROPHILS % (AUTO) 73.3 % (42.2-75.2); PLATELET COUNT (AUTO) 367 K/uL (140-450); RED BLOOD CELL COUNT(AUTO) 2.82 MIL/uL (4.20-5.40); RED CELL DISTRIBUTION WIDTH 17.4 % (11.6-13.7); WHITE BLOOD COUNT (AUTO) 8.7 K/uL (4.8-10.8)
[2023-08-18 09:06] LABS: INR 1.04 (0.8-1.2); PARTIAL THROMBOPLASTIN TIME 27.3 secs (22-35.6); PROTHROMBIN TIME 10.9 secs (10.8-13.4)
[2023-08-18 09:11] LABS: ALBUMIN 2.6 g/dL (3.4-5.0); ANION GAP 13.3 (8-16); CALCIUM 9.9 mg/dL (8.5-10.1); CARBON DIOXIDE 29.8 mmol/L (21-32); TOTAL BILIRUBIN 0.5 mg/dL (0.0-1.0); TOTAL PROTEIN, SERUM 7.9 g/dL (6.4-8.2)
[2023-08-18 09:19] LABS: FLU A ANTIGEN negative (NEGATIVE); FLU B ANTIGEN negative (NEGATIVE)
[2023-08-18 09:22] LABS: POTASSIUM 6.1 mmol/L (3.5-5.1)
[2023-08-18 09:24] LABS: CREATININE 7.3 mg/dL (0.6-1.3)
[2023-08-18] MEDS ORDERED: SODIUM BICARBONATE 8.4% PFS 50 MEQ/50 ML SYR IVP ONE (09:25)
[2023-08-18] MEDS ORDERED: INSULIN REGULAR, HUMAN 100 UNIT/ML VIAL SUBQ ONE (09:25)
[2023-08-18] MEDS ORDERED: DEXTROSE 50% 50 ML SYR IVP ONE (09:25)
[2023-08-18] MEDS ORDERED: SODIUM ZIRCONIUM CYCLOSILICATE 10 GM POWD.PACK PO ONE (09:25)
[2023-08-18 09:29] LABS: LACTIC ACID 1.2 mmol/L (0.4-2.0)
[2023-08-18] MEDS ORDERED: CLONIDINE HYDROCHLORIDE 0.1 MG TAB PO ONE (10:15)
[2023-08-18] MEDS ORDERED: INSULIN REGULAR, HUMAN 100 UNIT/ML VIAL IVP ONE (10:15)
[2023-08-18] MEDS ORDERED: INSULIN LISPRO 100 UNITS/ML VIAL SUBQ ONE (10:15)
[2023-08-18] MEDS ORDERED: PATI8.4P PO (10:37)
[2023-08-18] MEDS ORDERED: CARV12.52 PO (10:37)
[2023-08-18] MEDS ORDERED: GABA300C55 PO (10:37)
[2023-08-18] MEDS ORDERED: SUCR500C PO (10:37)
[2023-08-18] MEDS ORDERED: FLUT0.0547 NS (10:37)
[2023-08-18] MEDS ORDERED: CHOL100013 PO (10:37)
[2023-08-18] MEDS ORDERED: LACT500C2 PO (10:37)
[2023-08-18] MEDS ORDERED: TRAZ-466 PO (10:37)
[2023-08-18] MEDS ORDERED: NIFE90TA PO (10:37)
[2023-08-18] MEDS ORDERED: ASPI-1794 PO (10:37)
[2023-08-18] MEDS ORDERED: CALC667C3 PO (10:37)
[2023-08-18] MEDS ORDERED: INSU100I49 SUBQ (10:37)
[2023-08-18] MEDS ORDERED: ONDANSETRON 4 MG/2 ML VIAL IVP PRN (10:55)
[2023-08-18] MEDS ORDERED: HYDROcodone/APAP 5/325 MG 1 TAB TAB PO PRN (10:55)
[2023-08-18] MEDS ORDERED: HYDROcodone/APAP 5/325 MG 1 TAB TAB PO SCH (11:00)
[2023-08-18] MEDS ORDERED: NIFEdipine 30 MG TABER PO ONE (11:00)
[2023-08-18] MEDS ORDERED: DEXTROSE 50% 50 ML SYR IVP PRN (11:00)
[2023-08-18] MEDS: BLOOD GLUCOSE MONITORING 1 DEV DEV FS SCH ×3 (11:26→21:50)
[2023-08-18] MEDS ORDERED: CLONIDINE HYDROCHLORIDE 0.1 MG TAB PO PRN (14:20)
[2023-08-18] MEDS: hydrALAZINE 20 MG/ML VIAL IVP PRN (16:17)
[2023-08-18] MEDS: EPOETIN ALFA 10,000 UNITS/ML VIAL IV SCH (16:19)
[2023-08-18] MEDS ORDERED: CLONIDINE HYDROCHLORIDE 0.1 MG TAB PO SCH (21:00)
[2023-08-18] MEDS: traZODone 50 MG TAB PO SCH (21:46)
[2023-08-18] MEDS: GABAPENTIN 300 MG CAP PO SCH (21:46)
[2023-08-18] MEDS: INSULIN LANTUS 100 UNITS/ML 10 ML VIAL SUBQ SCH (21:47)
[2023-08-18] MEDS: INSULIN LISPRO SLIDING SCALE 100 UNITS/ML VIAL SUBQ PRN (21:49)
[2023-08-19] VITALS (11 sets, daily range): BP systolic 137–161; BP diastolic 46–75; PULSE 62–77; RESP 18; TEMP 97–98.2; O2SAT 86–97
[2023-08-19 06:36] LABS: ANION GAP 9.6 (8-16); CALCIUM 9.3 mg/dL (8.5-10.1); POTASSIUM 4.6 mmol/L (3.5-5.1)
[2023-08-19 06:39] LABS: CREATININE 4.4 mg/dL (0.6-1.3)
[2023-08-19] MEDS: BLOOD GLUCOSE MONITORING 1 DEV DEV FS SCH ×4 (06:55→20:21)
[2023-08-19 07:41] LABS: BASOPHILS % (AUTO) 0.1 % (0.0-2.0); EOSINOPHILS # (AUTO) 0.3 K/uL (0-0.4); EOSINOPHILS % (AUTO) 3.9 % (0.0-4.0); HEMATOCRIT 26.4 % (36-48); HEMOGLOBIN 8.7 g/dL (12.0-16.0); LYMPHOCYTES # (AUTO) 1.3 K/uL (2.5-16.5); LYMPHOCYTES % (AUTO) 19.4 % (20.5-51.1); MEAN CORPUSCULAR HEMOGLOBIN 33 pg (27-31); MEAN CORPUSCULAR HGB CONC 33 g/dL (33-37); MEAN CORPUSCULAR VOLUME 100.4 fL (80-94); MONOCYTES # (AUTO) 0.6 K/uL (0.8-1.0); MONOCYTES % (AUTO) 9.1 % (1.7-9.3); NEUTROPHILS # (AUTO) 4.7 K/uL (1.8-7.7); NEUTROPHILS % (AUTO) 67.5 % (42.2-75.2); PLATELET COUNT (AUTO) 299 K/uL (140-450); RED BLOOD CELL COUNT(AUTO) 2.63 MIL/uL (4.20-5.40); RED CELL DISTRIBUTION WIDTH 17.8 % (11.6-13.7); WHITE BLOOD COUNT (AUTO) 6.9 K/uL (4.8-10.8)
[2023-08-19] MEDS: ECOTRIN 81 MG TABEC PO SCH (08:37)
[2023-08-19] MEDS: VIT-B COMP/VIT-C/FOLIC ACID 1 TAB PO SCH (08:37)
[2023-08-19] MEDS: CLONIDINE HYDROCHLORIDE 0.1 MG TAB PO SCH ×2 (09:00→20:19)
[2023-08-19] MEDS: NIFEdipine 90 MG TABER PO SCH (09:00)
[2023-08-19] MEDS: INSULIN LISPRO SLIDING SCALE 100 UNITS/ML VIAL SUBQ PRN ×2 (12:34→20:24)
[2023-08-19] MEDS: GABAPENTIN 300 MG CAP PO SCH (20:17)
[2023-08-19] MEDS: ACETAMINOPHEN 325 MG TAB PO PRN (20:18)
[2023-08-19] MEDS: traZODone 50 MG TAB PO SCH (20:18)
[2023-08-19] MEDS: INSULIN LANTUS 100 UNITS/ML 10 ML VIAL SUBQ SCH (20:25)
[2023-08-19] MEDS: HYDROcodone/APAP 5/325 MG 1 TAB TAB PO PRN (23:34)
[2023-08-19] MEDS: hydrALAZINE 20 MG/ML VIAL IVP PRN (23:40)
[2023-08-20] VITALS (7 sets, daily range): BP systolic 148–160; BP diastolic 52–59; PULSE 63–71; RESP 16–18; TEMP 96.6–98; O2SAT 92–94
[2023-08-20 06:42] LABS: BASOPHILS # (AUTO) 0.2 K/uL (0.00-0.22); BASOPHILS % (AUTO) 2.6 % (0.0-2.0); EOSINOPHILS # (AUTO) 0.2 K/uL (0-0.4); EOSINOPHILS % (AUTO) 2.6 % (0.0-4.0); HEMATOCRIT 28.2 % (36-48); HEMOGLOBIN 9.2 g/dL (12.0-16.0); LYMPHOCYTES # (AUTO) 1.1 K/uL (2.5-16.5); LYMPHOCYTES % (AUTO) 15.7 % (20.5-51.1); MEAN CORPUSCULAR HEMOGLOBIN 33 pg (27-31); MEAN CORPUSCULAR HGB CONC 33 g/dL (33-37); MEAN CORPUSCULAR VOLUME 102.1 fL (80-94); MONOCYTES # (AUTO) 0.6 K/uL (0.8-1.0); MONOCYTES % (AUTO) 8.9 % (1.7-9.3); NEUTROPHILS # (AUTO) 4.7 K/uL (1.8-7.7); NEUTROPHILS % (AUTO) 70.2 % (42.2-75.2); PLATELET COUNT (AUTO) 301 K/uL (140-450); RED BLOOD CELL COUNT(AUTO) 2.77 MIL/uL (4.20-5.40); RED CELL DISTRIBUTION WIDTH 17.5 % (11.6-13.7); WHITE BLOOD COUNT (AUTO) 6.8 K/uL (4.8-10.8)
[2023-08-20] MEDS: BLOOD GLUCOSE MONITORING 1 DEV DEV FS SCH ×4 (06:42→20:18)
[2023-08-20 07:16] LABS: CALCIUM 9.3 mg/dL (8.5-10.1); CARBON DIOXIDE 28.5 mmol/L (21-32); POTASSIUM 4.5 mmol/L (3.5-5.1)
[2023-08-20 07:19] LABS: CREATININE 4.2 mg/dL (0.6-1.3)
[2023-08-20] MEDS: ACETAMINOPHEN 325 MG TAB PO PRN (07:51)
[2023-08-20] MEDS: CLONIDINE HYDROCHLORIDE 0.1 MG TAB PO SCH ×2 (09:18→20:13)
[2023-08-20] MEDS: VIT-B COMP/VIT-C/FOLIC ACID 1 TAB PO SCH (09:18)
[2023-08-20] MEDS: ECOTRIN 81 MG TABEC PO SCH (09:18)
[2023-08-20] MEDS: NIFEdipine 90 MG TABER PO SCH (09:18)
[2023-08-20] MEDS: EPOETIN ALFA 10,000 UNITS/ML VIAL IV SCH (09:19)
[2023-08-20] MEDS ORDERED: hydrALAZINE 25 MG TAB PO PRN (11:55)
[2023-08-20] MEDS: INSULIN LISPRO SLIDING SCALE 100 UNITS/ML VIAL SUBQ PRN (17:04)
[2023-08-20] MEDS: GABAPENTIN 300 MG CAP PO SCH (20:11)
[2023-08-20] MEDS: traZODone 50 MG TAB PO SCH (20:15)
[2023-08-20] MEDS ORDERED: ATORVASTATIN 20 MG TAB PO SCH (21:00)
[2023-08-21] VITALS: BP 159/82; PULSE 71; RESP 18; TEMP 98.4; O2SAT 92
[2023-08-21] MEDS: HYDROcodone/APAP 5/325 MG 1 TAB TAB PO PRN ×2 (03:12→08:33)
[2023-08-21 06:23] LABS: BASOPHILS # (AUTO) 0.3 K/uL (0.00-0.22); EOSINOPHILS # (AUTO) 0.3 K/uL (0-0.4); EOSINOPHILS % (AUTO) 4.4 % (0.0-4.0); HEMATOCRIT 28.4 % (36-48); HEMOGLOBIN 9.2 g/dL (12.0-16.0); LYMPHOCYTES # (AUTO) 1.4 K/uL (2.5-16.5); LYMPHOCYTES % (AUTO) 22.2 % (20.5-51.1); MEAN CORPUSCULAR HEMOGLOBIN 33 pg (27-31); MEAN CORPUSCULAR HGB CONC 32 g/dL (33-37); MEAN CORPUSCULAR VOLUME 101.6 fL (80-94); MONOCYTES # (AUTO) 0.5 K/uL (0.8-1.0); MONOCYTES % (AUTO) 8.5 % (1.7-9.3); NEUTROPHILS # (AUTO) 3.9 K/uL (1.8-7.7); NEUTROPHILS % (AUTO) 60.9 % (42.2-75.2); PLATELET COUNT (AUTO) 299 K/uL (140-450); RED CELL DISTRIBUTION WIDTH 17.3 % (11.6-13.7); WHITE BLOOD COUNT (AUTO) 6.5 K/uL (4.8-10.8)
[2023-08-21 06:32] LABS: ANION GAP 11.8 (8-16); CALCIUM 9.3 mg/dL (8.5-10.1); CARBON DIOXIDE 29.8 mmol/L (21-32); POTASSIUM 5.6 mmol/L (3.5-5.1)
[2023-08-21 06:34] LABS: CREATININE 5.5 mg/dL (0.6-1.3)
[2023-08-21] MEDS: INSULIN LISPRO SLIDING SCALE 100 UNITS/ML VIAL SUBQ PRN ×2 (06:44→16:25)
[2023-08-21 07:52] VITALS: PULSE 72; RESP 18; O2SAT 92
[2023-08-21] MEDS: BLOOD GLUCOSE MONITORING 1 DEV DEV FS SCH ×3 (07:56→16:19)
[2023-08-21 08:00] VITALS: BP 155/63; PULSE 71; RESP 17; TEMP 97.3; O2SAT 92
[2023-08-21] MEDS: ECOTRIN 81 MG TABEC PO SCH (08:32)
[2023-08-21] MEDS: VIT-B COMP/VIT-C/FOLIC ACID 1 TAB PO SCH (08:32)
[2023-08-21] MEDS: NIFEdipine 90 MG TABER PO SCH (08:33)
[2023-08-21] MEDS: CLONIDINE HYDROCHLORIDE 0.1 MG TAB PO SCH (08:35)
[2023-08-21 16:33] VITALS: BP 148/72; PULSE 73; RESP 17; TEMP 97.3
== END 2023-08-21 18:00 | DRG 682 ==
LOC: MED 07:52 → MMU 10:55 → MTU 11:14
PROVIDERS: ADMIT Internal Medicine; ATTEND Internal Medicine
PROC: 5A1D70Z Performance of Urinary Filtration, Intermittent, Less than 6 Hours Per Day (ICD-10-PCS; principal; 2023-08-18)
PROC: 5A1D70Z Performance of Urinary Filtration, Intermittent, Less than 6 Hours Per Day (ICD-10-PCS; 2023-08-19)
PROC: 5A1D70Z Performance of Urinary Filtration, Intermittent, Less than 6 Hours Per Day (ICD-10-PCS; 2023-08-21)
DX: N17.0 Acute kidney failure with tubular necrosis (principal); I50.43 Acute on chronic combined systolic (congestive) and diastolic (congestive) heart failure; J96.01 Acute respiratory failure with hypoxia; I13.2 Hypertensive heart and chronic kidney disease with heart failure and with stage 5 chronic kidney disease, or end stage renal disease; I69.354 Hemiplegia and hemiparesis following cerebral infarction affecting left non-dominant side; E87.5 Hyperkalemia; N18.6 End stage renal disease; I16.0 Hypertensive urgency; Z20.822 Contact with and (suspected) exposure to COVID-19; D64.9 Anemia, unspecified; Z99.2 Dependence on renal dialysis; Z88.1 Allergy status to other antibiotic agents; Z88.5 Allergy status to narcotic agent; Z88.8 Allergy status to other drugs, medicaments and biological substances
CPT/HCPCS: 36415; 36600; 70450; 71045; 80048; 80053; 82803; 82948; 83605; 83880; 84484; 85025; 85610; 85730; 87040; 87081; 93005; 96374; 96375; 99285; J0360; J0885; J1644; J1815; J2405

== ENCOUNTER 2023-08-24 07:12 | Inpatient (IN) | payer OTHER, MEDICAID ==
[2023-08-24] VITALS (13 sets, daily range): BP systolic 110–181; BP diastolic 72–95; PULSE 54–75; RESP 16–20; TEMP 97.4–98.1; O2SAT 88–98
[~2023-08-24] VITALS: Ht 157.5 cm; Wt 74.4 kg
[~2023-08-24 07:12] MED LIST changes: +ASPI-1794 PO; +CALC667C3 PO; +CARV12.52 PO; +CHOL100013 PO; +FLUT0.0547 NS; +GABA300C55 PO; +INSU100I49 SUBQ; +LACT500C2 PO; -NIFE60TA22 PO; +NIFE90TA PO; +PATI8.4P PO; +SUCR500C PO; +TRAZ-466 PO
[2023-08-24] MEDS ORDERED: NITROGLYCERIN 0.4 MG TAB SL ONE (07:40)
[2023-08-24 07:50] LABS: BASOPHILS # (AUTO) 0.1 K/uL (0.00-0.22); BASOPHILS % (AUTO) 0.9 % (0.0-2.0); EOSINOPHILS # (AUTO) 0.3 K/uL (0-0.4); EOSINOPHILS % (AUTO) 3.9 % (0.0-4.0); HEMATOCRIT 29.5 % (36-48); HEMOGLOBIN 9.6 g/dL (12.0-16.0); LYMPHOCYTES # (AUTO) 1.3 K/uL (2.5-16.5); LYMPHOCYTES % (AUTO) 15.9 % (20.5-51.1); MEAN CORPUSCULAR HEMOGLOBIN 33 pg (27-31); MEAN CORPUSCULAR HGB CONC 32 g/dL (33-37); MEAN CORPUSCULAR VOLUME 101.7 fL (80-94); MONOCYTES # (AUTO) 0.6 K/uL (0.8-1.0); MONOCYTES % (AUTO) 8.1 % (1.7-9.3); NEUTROPHILS # (AUTO) 5.6 K/uL (1.8-7.7); NEUTROPHILS % (AUTO) 71.2 % (42.2-75.2); PLATELET COUNT (AUTO) 282 K/uL (140-450); RED CELL DISTRIBUTION WIDTH 17.6 % (11.6-13.7); WHITE BLOOD COUNT (AUTO) 7.9 K/uL (4.8-10.8)
[2023-08-24] MEDS ORDERED: CEFEPIME 2,000 MG in DEXTROSE 5% 100 ML IV ONE (08:05)
[2023-08-24] MEDS ORDERED: VANCOMYCIN 1,000 MG in DEXTROSE 5% 250 ML IV ONE (08:05)
[2023-08-24 08:11] LABS: ACETONE, SERUM Negative (NEGATIVE)
[2023-08-24 08:14] LABS: INR 1.05 (0.8-1.2); PARTIAL THROMBOPLASTIN TIME 29.6 secs (22-35.6)
[2023-08-24] MEDS ORDERED: VANCOMYCIN 1,000 MG VIAL ONE (08:15)
[2023-08-24] MEDS ORDERED: CEFEPIME 2,000 MG VIAL IV ONE (08:15)
[2023-08-24 08:17] LABS: ALBUMIN 2.7 g/dL (3.4-5.0); ANION GAP 12.5 (8-16); CALCIUM 9.8 mg/dL (8.5-10.1); POTASSIUM 5.5 mmol/L (3.5-5.1); TOTAL BILIRUBIN 0.5 mg/dL (0.0-1.0); TOTAL PROTEIN, SERUM 8.2 g/dL (6.4-8.2)
[2023-08-24 08:20] LABS: CREATINE KINASE, TOTAL 20 U/L (26-192)
[2023-08-24 08:23] LABS: BLOOD GAS PCO2 41.7 mmHg (35-45); BLOOD GAS PH 7.443 (7.35-7.45)
[2023-08-24 08:24] LABS: BLOOD GAS BASE EXCESS 3.5 mmol/L (-2.0-2.0); BLOOD GAS HCO3 27.9 mmol/L (22-26); BLOOD GAS O2 SAT% 87.5 % (92.0-98.5)
[2023-08-24] MEDS ORDERED: ALBUTEROL 0.083% 2.5 MG/3 ML NEBU INH ONE (08:30)
[2023-08-24] MEDS ORDERED: DEXTROSE 50% 50 ML SYR IVP ONE (08:30)
[2023-08-24] MEDS ORDERED: INSULIN REGULAR, HUMAN 100 UNIT/ML VIAL IV ONE (08:30)
[2023-08-24] MEDS ORDERED: CALCIUM GLUC 1 GM/50 mL NS BAG 50 ML IV ONE (08:30)
[2023-08-24] MEDS ORDERED: POTASSIUM CHLORIDE 10 MEQ TABER PO PRN (08:40)
[2023-08-24] MEDS ORDERED: guaiFENesin DM 200/20 MG-10 ML 10 ML UDC PO PRN (08:40)
[2023-08-24] MEDS ORDERED: ZOLPIDEM 5 MG TAB PO PRN (08:40)
[2023-08-24] MEDS ORDERED: DOCUSATE SODIUM 100 MG GELCAP PO PRN (08:40)
[2023-08-24] MEDS ORDERED: ONDANSETRON 4 MG/2 ML VIAL IM/IVP PRN (08:40)
[2023-08-24] MEDS ORDERED: DEXTROSE 50% 50 ML SYR IVP PRN (08:45)
[2023-08-24] MEDS ORDERED: ALBUTEROL SULFATE/IPRATROPIU 3 ML SOL IH PRN (08:45)
[2023-08-24] MEDS: ECOTRIN 81 MG TABEC PO SCH (09:04)
[2023-08-24] MEDS: PANTOPRAZOLE 40 MG TABEC PO SCH (09:05)
[2023-08-24] MEDS: CLONIDINE HYDROCHLORIDE 0.1 MG TAB PO SCH ×5 (09:05→17:59)
[2023-08-24] MEDS: carvediloL 12.5 MG TAB PO SCH ×3 (09:06→23:44)
[2023-08-24 09:25] LABS: CHOL/HDL RATIO 2.7 (1-4.5); MAGNESIUM 2.5 mg/dL (1.8-2.4); PHOSPHORUS 6.1 mg/dL (2.5-4.9); THYROID STIMULATING HORMONE 4.76 uIU/mL (0.34-3.74)
[2023-08-24 10:09] LABS: FLU A ANTIGEN negative (NEGATIVE); FLU B ANTIGEN negative (NEGATIVE)
[2023-08-24] MEDS: BLOOD GLUCOSE MONITORING 1 DEV DEV FS SCH ×3 (11:30→20:58)
[2023-08-24] MEDS: SEVELAMER CARBONATE 800 MG TAB PO SCH ×2 (12:00→16:18)
[2023-08-24] MEDS: ALBUTEROL SULFATE/IPRATROPIU 3 ML SOL IH SCH ×2 (13:35→18:55)
[2023-08-24] MEDS: hydrALAZINE 20 MG/ML VIAL IVP PRN (14:23)
[2023-08-24] MEDS: EPOETIN ALFA 10,000 UNITS/ML VIAL IV SCH (16:17)
[2023-08-24] MEDS: INSULIN LISPRO SLIDING SCALE 100 UNITS/ML VIAL SUBQ PRN (16:42)
[2023-08-24] MEDS: INSULIN LANTUS 100 UNITS/ML 10 ML VIAL SUBQ SCH (21:00)
[2023-08-24] MEDS: traZODone 50 MG TAB PO SCH ×2 (21:01→23:44)
[2023-08-24] MEDS: ACETAMINOPHEN 325 MG TAB PO PRN (23:45)
[2023-08-25] VITALS (9 sets, daily range): BP systolic 124–177; BP diastolic 54–68; PULSE 66–75; RESP 17–20; TEMP 97–98.3; O2SAT 85–97
[2023-08-25] MEDS: hydrALAZINE 20 MG/ML VIAL IVP PRN (02:13)
[2023-08-25 06:29] LABS: BASOPHILS # (AUTO) 0.2 K/uL (0.00-0.22); BASOPHILS % (AUTO) 3.3 % (0.0-2.0); EOSINOPHILS # (AUTO) 0.3 K/uL (0-0.4); HEMATOCRIT 29.7 % (36-48); HEMOGLOBIN 9.6 g/dL (12.0-16.0); LYMPHOCYTES # (AUTO) 1.2 K/uL (2.5-16.5); LYMPHOCYTES % (AUTO) 19.1 % (20.5-51.1); MEAN CORPUSCULAR HEMOGLOBIN 33 pg (27-31); MEAN CORPUSCULAR HGB CONC 32 g/dL (33-37); MEAN CORPUSCULAR VOLUME 101.5 fL (80-94); MONOCYTES # (AUTO) 0.6 K/uL (0.8-1.0); MONOCYTES % (AUTO) 10.3 % (1.7-9.3); NEUTROPHILS # (AUTO) 3.8 K/uL (1.8-7.7); NEUTROPHILS % (AUTO) 62.3 % (42.2-75.2); PLATELET COUNT (AUTO) 234 K/uL (140-450); RED BLOOD CELL COUNT(AUTO) 2.92 MIL/uL (4.20-5.40); RED CELL DISTRIBUTION WIDTH 17.3 % (11.6-13.7); WHITE BLOOD COUNT (AUTO) 6.2 K/uL (4.8-10.8)
[2023-08-25 06:41] LABS: ANION GAP 12.3 (8-16); CALCIUM 9.4 mg/dL (8.5-10.1); CARBON DIOXIDE 27.1 mmol/L (21-32); POTASSIUM 4.4 mmol/L (3.5-5.1)
[2023-08-25 06:49] LABS: CREATININE 4.8 mg/dL (0.6-1.3)
[2023-08-25] MEDS: BLOOD GLUCOSE MONITORING 1 DEV DEV FS SCH ×4 (07:01→20:33)
[2023-08-25] MEDS: INSULIN LISPRO SLIDING SCALE 100 UNITS/ML VIAL SUBQ PRN ×3 (07:06→20:31)
[2023-08-25] MEDS: ALBUTEROL SULFATE/IPRATROPIU 3 ML SOL IH SCH ×3 (07:25→19:03)
[2023-08-25] MEDS: NIFEdipine 90 MG TABER PO SCH (08:09)
[2023-08-25] MEDS: SEVELAMER CARBONATE 800 MG TAB PO SCH ×3 (08:09→16:30)
[2023-08-25] MEDS: GABAPENTIN 300 MG CAP PO SCH (08:10)
[2023-08-25] MEDS: carvediloL 12.5 MG TAB PO SCH ×2 (08:10→20:14)
[2023-08-25] MEDS: ECOTRIN 81 MG TABEC PO SCH (08:11)
[2023-08-25] MEDS: CLONIDINE HYDROCHLORIDE 0.1 MG TAB PO SCH (08:12)
[2023-08-25] MEDS: PANTOPRAZOLE 40 MG TABEC PO SCH (08:23)
[2023-08-25 10:06] LABS: T4 (THYROXINE) 6.8 ug/dL (4.5-12.0)
[2023-08-25] MEDS: ACETAMINOPHEN 325 MG TAB PO PRN (12:34)
[2023-08-25] MEDS: INSULIN LANTUS 100 UNITS/ML 10 ML VIAL SUBQ SCH (20:33)
[2023-08-25] MEDS: traZODone 50 MG TAB PO SCH (20:42)
[2023-08-25] MEDS ORDERED: GABAPENTIN 300 MG CAP PO ONE (20:55)
[2023-08-26] MEDS: ACETAMINOPHEN 325 MG TAB PO PRN ×2 (03:04→13:36)
[2023-08-26 04:00] VITALS: BP 140/97; PULSE 78; RESP 18; TEMP 97.5; O2SAT 92
[2023-08-26 06:08] LABS: HEMOGLOBIN A1C 5.6 % (4.8-5.6)
[2023-08-26 06:56] LABS: ANION GAP 10.9 (8-16); CALCIUM 9.5 mg/dL (8.5-10.1); CREATININE 3.7 mg/dL (0.6-1.3); POTASSIUM 3.9 mmol/L (3.5-5.1)
[2023-08-26 06:58] LABS: BASOPHILS # (AUTO) 0.2 K/uL (0.00-0.22); BASOPHILS % (AUTO) 2.5 % (0.0-2.0); EOSINOPHILS # (AUTO) 0.4 K/uL (0-0.4); EOSINOPHILS % (AUTO) 6.2 % (0.0-4.0); HEMATOCRIT 28.1 % (36-48); HEMOGLOBIN 9.2 g/dL (12.0-16.0); LYMPHOCYTES # (AUTO) 1.1 K/uL (2.5-16.5); MEAN CORPUSCULAR HEMOGLOBIN 33 pg (27-31); MEAN CORPUSCULAR HGB CONC 33 g/dL (33-37); MEAN CORPUSCULAR VOLUME 100.6 fL (80-94); MONOCYTES # (AUTO) 0.8 K/uL (0.8-1.0); MONOCYTES % (AUTO) 13.3 % (1.7-9.3); NEUTROPHILS # (AUTO) 3.8 K/uL (1.8-7.7); PLATELET COUNT (AUTO) 230 K/uL (140-450); RED BLOOD CELL COUNT(AUTO) 2.79 MIL/uL (4.20-5.40); RED CELL DISTRIBUTION WIDTH 16.8 % (11.6-13.7); WHITE BLOOD COUNT (AUTO) 6.3 K/uL (4.8-10.8)
[2023-08-26] MEDS: BLOOD GLUCOSE MONITORING 1 DEV DEV FS SCH ×2 (07:09→12:18)
[2023-08-26 07:48] VITALS: PULSE 70; RESP 18; O2SAT 98
[2023-08-26] MEDS: ALBUTEROL SULFATE/IPRATROPIU 3 ML SOL IH SCH ×2 (07:49→13:14)
[2023-08-26 08:00] VITALS: PULSE 68; RESP 19; O2SAT 99
[2023-08-26] MEDS: EPOETIN ALFA 10,000 UNITS/ML VIAL IV SCH (09:00)
[2023-08-26] MEDS: carvediloL 12.5 MG TAB PO SCH (09:12)
[2023-08-26] MEDS: CLONIDINE HYDROCHLORIDE 0.1 MG TAB PO SCH (09:13)
[2023-08-26] MEDS: SEVELAMER CARBONATE 800 MG TAB PO SCH ×2 (09:13→12:16)
[2023-08-26] MEDS: ECOTRIN 81 MG TABEC PO SCH (09:14)
[2023-08-26] MEDS: PANTOPRAZOLE 40 MG TABEC PO SCH (09:14)
[2023-08-26] MEDS: NIFEdipine 90 MG TABER PO SCH (09:14)
[2023-08-26] MEDS: GABAPENTIN 300 MG CAP PO SCH (09:15)
[2023-08-26 10:43] VITALS: BP 174/70
[2023-08-26] MEDS ORDERED: hydrALAZINE 10 MG TAB PO SCH (11:54)
[2023-08-26 13:14] VITALS: PULSE 75; RESP 16; O2SAT 95
== END 2023-08-26 14:40 | disposition home or self-care (01) | DRG 177 ==
LOC: MED 07:12 → MTU 08:34
PROVIDERS: ADMIT Family Medicine; ATTEND Family Medicine
PROC: 5A1D70Z Performance of Urinary Filtration, Intermittent, Less than 6 Hours Per Day (ICD-10-PCS; principal; 2023-08-24)
PROC: 5A1D70Z Performance of Urinary Filtration, Intermittent, Less than 6 Hours Per Day (ICD-10-PCS; 2023-08-25)
DX: J69.0 Pneumonitis due to inhalation of food and vomit (principal); E43 Unspecified severe protein-calorie malnutrition; J96.00 Acute respiratory failure, unspecified whether with hypoxia or hypercapnia; I50.43 Acute on chronic combined systolic (congestive) and diastolic (congestive) heart failure; N17.0 Acute kidney failure with tubular necrosis; N18.6 End stage renal disease; I13.2 Hypertensive heart and chronic kidney disease with heart failure and with stage 5 chronic kidney disease, or end stage renal disease; I16.1 Hypertensive emergency; Z20.822 Contact with and (suspected) exposure to COVID-19; D63.8 Anemia in other chronic diseases classified elsewhere; E87.5 Hyperkalemia; E11.22 Type 2 diabetes mellitus with diabetic chronic kidney disease; Z99.2 Dependence on renal dialysis; Z85.038 Personal history of other malignant neoplasm of large intestine; Z88.5 Allergy status to narcotic agent; Z88.0 Allergy status to penicillin; Z88.8 Allergy status to other drugs, medicaments and biological substances; Z90.49 Acquired absence of other specified parts of digestive tract; Z68.30 Body mass index [BMI] 30.0-30.9, adult
CPT/HCPCS: 36415; 36600; 71045; 80048; 80053; 82009; 82150; 82550; 82803; 82948; 83036; 83605; 83690; 83735; 83880; 84100; 84436; 84439; 84443; 84479; 84484; 85025; 85610; 85730; 87040; 87070; 87081; 87205; 93005; 94640; 96365; 96375; 97116; 97163-GP; 99285; J0360; J0610; J0692; J0696; J0885; J1815; J3370; J7060; J7613

== ENCOUNTER 2023-08-29 12:51 | Inpatient (IN) | payer OTHER, MEDICAID ==
[~2023-08-29] VITALS: Ht 162.6 cm; Wt 99.3 kg
[~2023-08-29 12:51] MED LIST changes: -ASPI-1749 PO; -CARV12.5 PO; -CEPH250C16 PO; -FLUT0.0547 NS; -GABA300C PO; -INSU100I49 SUBQ; -LACT500C2 PO; -LID5T TP; -PATI8.4P PO; -PIPE50SO5 IV; -SUCR500C PO; -TRAZ-343 PO
[2023-08-29 12:54] VITALS: BP 212/78; PULSE 90; RESP 20; TEMP 97.8; O2SAT 100
[2023-08-29 15:02] LABS: BASOPHILS # (AUTO) 0.1 K/uL (0.00-0.22); BASOPHILS % (AUTO) 1.4 % (0.0-2.0); EOSINOPHILS # (AUTO) 0.4 K/uL (0-0.4); EOSINOPHILS % (AUTO) 5.7 % (0.0-4.0); HEMATOCRIT 29.6 % (36-48); HEMOGLOBIN 9.5 g/dL (12.0-16.0); LYMPHOCYTES # (AUTO) 1.1 K/uL (2.5-16.5); LYMPHOCYTES % (AUTO) 15.3 % (20.5-51.1); MEAN CORPUSCULAR HEMOGLOBIN 33 pg (27-31); MEAN CORPUSCULAR HGB CONC 32 g/dL (33-37); MEAN CORPUSCULAR VOLUME 101.6 fL (80-94); MONOCYTES # (AUTO) 0.8 K/uL (0.8-1.0); MONOCYTES % (AUTO) 10.9 % (1.7-9.3); NEUTROPHILS # (AUTO) 4.9 K/uL (1.8-7.7); NEUTROPHILS % (AUTO) 66.7 % (42.2-75.2); PLATELET COUNT (AUTO) 244 K/uL (140-450); RED BLOOD CELL COUNT(AUTO) 2.91 MIL/uL (4.20-5.40); RED CELL DISTRIBUTION WIDTH 16.7 % (11.6-13.7); WHITE BLOOD COUNT (AUTO) 7.4 K/uL (4.8-10.8)
[2023-08-29 15:22] LABS: INR 1.05 (0.8-1.2); PARTIAL THROMBOPLASTIN TIME 24.4 secs (22-35.6)
[2023-08-29 15:26] LABS: MAGNESIUM 2.5 mg/dL (1.8-2.4)
[2023-08-29 15:36] LABS: ALBUMIN 2.7 g/dL (3.4-5.0); CALCIUM 9.6 mg/dL (8.5-10.1); CARBON DIOXIDE 26.3 mmol/L (21-32); POTASSIUM 5.3 mmol/L (3.5-5.1); TOTAL BILIRUBIN 0.3 mg/dL (0.0-1.0); TOTAL PROTEIN, SERUM 8.1 g/dL (6.4-8.2)
[2023-08-29] MEDS ORDERED: ONDANSETRON 4 MG/2 ML VIAL IVP PRN (16:35)
[2023-08-29] MEDS: SODIUM ZIRCONIUM CYCLOSILICATE 10 GM POWD.PACK PO SCH (16:40)
[2023-08-29] MEDS ORDERED: SODIUM POLYSTYRENE 15 GM/60 ML UDBTL PO ONE (19:30)
[2023-08-29] MEDS: hydrALAZINE 20 MG/ML VIAL IVP PRN (19:57)
[2023-08-29 20:25] VITALS: PULSE 74; RESP 18; O2SAT 94
[2023-08-29 20:30] VITALS: BP 143/71; PULSE 74; RESP 18; TEMP 98.2; O2SAT 94
[2023-08-29 20:49] VITALS: PULSE 75
[2023-08-29] MEDS ORDERED: SODIUM POLYSTYRENE 15 GM/60 ML UDBTL ONE (21:23)
[2023-08-29 22:25] VITALS: PULSE 74; RESP 18; O2SAT 94
[2023-08-29] MEDS: ACETAMINOPHEN 325 MG TAB PO PRN (23:13)
[2023-08-30] VITALS: BP 210/86; PULSE 80; PULSE 91; RESP 20; TEMP 98.5; O2SAT 92
[2023-08-30] MEDS: hydrALAZINE 20 MG/ML VIAL IVP PRN (02:10)
[2023-08-30 04:00] VITALS: BP 181/72; PULSE 80; PULSE 91; RESP 20; TEMP 98.5; O2SAT 92
[2023-08-30 07:34] LABS: BASOPHILS # (AUTO) 0.2 K/uL (0.00-0.22); BASOPHILS % (AUTO) 1.9 % (0.0-2.0); EOSINOPHILS # (AUTO) 0.4 K/uL (0-0.4); EOSINOPHILS % (AUTO) 5.4 % (0.0-4.0); HEMATOCRIT 28.4 % (36-48); HEMOGLOBIN 9.5 g/dL (12.0-16.0); LYMPHOCYTES # (AUTO) 1.4 K/uL (2.5-16.5); LYMPHOCYTES % (AUTO) 17.6 % (20.5-51.1); MEAN CORPUSCULAR HEMOGLOBIN 33 pg (27-31); MEAN CORPUSCULAR HGB CONC 33 g/dL (33-37); MEAN CORPUSCULAR VOLUME 99.8 fL (80-94); MONOCYTES # (AUTO) 0.8 K/uL (0.8-1.0); MONOCYTES % (AUTO) 10.2 % (1.7-9.3); NEUTROPHILS # (AUTO) 5.3 K/uL (1.8-7.7); NEUTROPHILS % (AUTO) 64.9 % (42.2-75.2); PLATELET COUNT (AUTO) 258 K/uL (140-450); RED BLOOD CELL COUNT(AUTO) 2.85 MIL/uL (4.20-5.40); RED CELL DISTRIBUTION WIDTH 16.5 % (11.6-13.7); WHITE BLOOD COUNT (AUTO) 8.2 K/uL (4.8-10.8)
[2023-08-30 08:00] VITALS: BP 182/99; PULSE 72; PULSE 75; RESP 24; TEMP 98.6; O2SAT 93
[2023-08-30 08:13] LABS: ALBUMIN 2.9 g/dL (3.4-5.0); ANION GAP 18.6 (8-16); CALCIUM 9.7 mg/dL (8.5-10.1); CARBON DIOXIDE 23.3 mmol/L (21-32); MAGNESIUM 2.5 mg/dL (1.8-2.4); PHOSPHORUS 6.1 mg/dL (2.5-4.9); POTASSIUM 4.9 mmol/L (3.5-5.1); TOTAL BILIRUBIN 0.5 mg/dL (0.0-1.0); TOTAL PROTEIN, SERUM 8.4 g/dL (6.4-8.2)
[2023-08-30 08:21] LABS: CREATININE 8.6 mg/dL (0.6-1.3)
[2023-08-30] MEDS ORDERED: hydrALAZINE 20 MG/ML VIAL IVP PRN ×2 (08:26→16:45)
[2023-08-30] MEDS: SODIUM ZIRCONIUM CYCLOSILICATE 10 GM POWD.PACK PO SCH (08:33)
[2023-08-30] MEDS: HYDROcodone/APAP 5/325 MG 1 TAB TAB PO PRN ×2 (08:33→21:43)
[2023-08-30 12:00] VITALS: BP 228/93; PULSE 18; PULSE 72; RESP 18; TEMP 98; O2SAT 92
[2023-08-30] MEDS ORDERED: CLONIDINE HYDROCHLORIDE 0.1 MG TAB PO SCH (12:04)
[2023-08-30] MEDS: carvediloL 12.5 MG TAB PO SCH ×2 (12:46→20:17)
[2023-08-30] MEDS: CALCIUM ACETATE 667 MG TAB PO SCH ×2 (12:47→17:51)
[2023-08-30] MEDS: NIFEdipine 90 MG TABER PO SCH (12:47)
[2023-08-30 16:00] VITALS: BP 147/71; PULSE 70; PULSE 81; RESP 18; TEMP 97.1; O2SAT 95
[2023-08-30] MEDS: CLONIDINE HYDROCHLORIDE 0.1 MG TAB PO SCH ×3 (16:45→20:16)
[2023-08-30 20:00] VITALS: BP 125/81; PULSE 74; PULSE 75; RESP 18; TEMP 98.4; O2SAT 94
[2023-08-30] MEDS ORDERED: INSULIN LANTUS 100 UNITS/ML 10 ML VIAL SUBQ SCH (20:00)
[2023-08-30] MEDS ORDERED: MELATONIN 3 MG TAB PO PRN (20:25)
[2023-08-30] MEDS: ACETAMINOPHEN 325 MG TAB PO PRN (23:17)
[2023-08-31] VITALS: BP 135/57; PULSE 67; PULSE 68; RESP 20; TEMP 98.2; O2SAT 95
[2023-08-31 04:00] VITALS: BP 112/62; PULSE 60; RESP 18; TEMP 98.5; O2SAT 95
[2023-08-31 06:55] LABS: BASOPHILS # (AUTO) 0.2 K/uL (0.00-0.22); BASOPHILS % (AUTO) 2.7 % (0.0-2.0); EOSINOPHILS # (AUTO) 0.4 K/uL (0-0.4); EOSINOPHILS % (AUTO) 6.4 % (0.0-4.0); HEMATOCRIT 26.3 % (36-48); HEMOGLOBIN 8.7 g/dL (12.0-16.0); LYMPHOCYTES # (AUTO) 1.4 K/uL (2.5-16.5); LYMPHOCYTES % (AUTO) 22.5 % (20.5-51.1); MEAN CORPUSCULAR HEMOGLOBIN 33 pg (27-31); MEAN CORPUSCULAR HGB CONC 33 g/dL (33-37); MEAN CORPUSCULAR VOLUME 99.2 fL (80-94); MONOCYTES # (AUTO) 0.8 K/uL (0.8-1.0); MONOCYTES % (AUTO) 12.3 % (1.7-9.3); NEUTROPHILS # (AUTO) 3.6 K/uL (1.8-7.7); NEUTROPHILS % (AUTO) 56.1 % (42.2-75.2); PLATELET COUNT (AUTO) 218 K/uL (140-450); RED BLOOD CELL COUNT(AUTO) 2.65 MIL/uL (4.20-5.40); RED CELL DISTRIBUTION WIDTH 15.8 % (11.6-13.7); WHITE BLOOD COUNT (AUTO) 6.4 K/uL (4.8-10.8)
[2023-08-31 07:02] LABS: ALBUMIN 2.4 g/dL (3.4-5.0); ANION GAP 11.7 (8-16); CALCIUM 9.2 mg/dL (8.5-10.1); CARBON DIOXIDE 30.8 mmol/L (21-32); POTASSIUM 4.5 mmol/L (3.5-5.1); TOTAL BILIRUBIN 0.4 mg/dL (0.0-1.0); TOTAL PROTEIN, SERUM 7.3 g/dL (6.4-8.2)
[2023-08-31 07:16] LABS: CREATININE 6.6 mg/dL (0.6-1.3)
[2023-08-31 08:00] VITALS: BP 138/91; PULSE 60; PULSE 65; PULSE 74; RESP 17; TEMP 98; O2SAT 94; O2SAT 96
[2023-08-31] MEDS ORDERED: traZODone 50 MG TAB PO SCH (09:00)
[2023-08-31] MEDS ORDERED: hydrALAZINE 25 MG TAB PO SCH (09:00)
[2023-08-31] MEDS ORDERED: GABAPENTIN 300 MG CAP PO SCH (09:00)
[2023-08-31] MEDS: NIFEdipine 90 MG TABER PO SCH (09:23)
[2023-08-31] MEDS: CLONIDINE HYDROCHLORIDE 0.1 MG TAB PO SCH ×3 (09:28→13:49)
[2023-08-31] MEDS: carvediloL 12.5 MG TAB PO SCH (09:28)
[2023-08-31] MEDS: CALCIUM ACETATE 667 MG TAB PO SCH ×2 (09:30→14:06)
[2023-08-31 12:00] VITALS: BP 123/60; PULSE 58; PULSE 60; RESP 17; TEMP 97; O2SAT 96
[2023-08-31] MEDS ORDERED: LEVO-481 PO (12:12)
[2023-08-31] MEDS ORDERED: levoFLOXacin 750 MG TAB PO SCH (12:13)
[2023-08-31 16:04] VITALS: O2SAT 93
[2023-08-31 17:16] VITALS: BP 139/51; PULSE 66; RESP 17; TEMP 97.7
== END 2023-08-31 18:30 | DRG 193 ==
LOC: MED 12:51 → MTU 16:37
PROVIDERS: ADMIT Student in an Organized Health Care Education/Training Program; ATTEND Student in an Organized Health Care Education/Training Program
PROC: 5A1D70Z Performance of Urinary Filtration, Intermittent, Less than 6 Hours Per Day (ICD-10-PCS; principal; 2023-08-29)
PROC: 5A1D70Z Performance of Urinary Filtration, Intermittent, Less than 6 Hours Per Day (ICD-10-PCS; 2023-08-31)
DX: J15.9 Unspecified bacterial pneumonia (principal); N18.6 End stage renal disease; I13.2 Hypertensive heart and chronic kidney disease with heart failure and with stage 5 chronic kidney disease, or end stage renal disease; E44.0 Moderate protein-calorie malnutrition; I50.32 Chronic diastolic (congestive) heart failure; E87.5 Hyperkalemia; D64.9 Anemia, unspecified; E11.22 Type 2 diabetes mellitus with diabetic chronic kidney disease; Z88.5 Allergy status to narcotic agent; Z85.038 Personal history of other malignant neoplasm of large intestine; Z88.0 Allergy status to penicillin; Z88.8 Allergy status to other drugs, medicaments and biological substances; Z79.899 Other long term (current) drug therapy; Z68.37 Body mass index [BMI] 37.0-37.9, adult
CPT/HCPCS: 36415; 71045; 80053; 82948; 83735; 83880; 84100; 84484; 85025; 85610; 85730; 87081; 93005; 99285; J0360; J1815